=== PATIENT | male | born 1930 | race Caucasian/White ===

== ENCOUNTER 2018-02-23 05:30 | Inpatient (IN) | payer MEDICARE, BC ==
[~2018-02-23] VITALS: Ht 175.3 cm; Wt 124.7 kg
[~2018-02-23 05:30] MED LIST: ACTOS; AVAPRO; FLOMAX0.4 MG PO; K-DUR 20 MEQ T20 MEQ PO; LASIX 40 MG TAB40 M1 PO; TOPROL; ZOCOR40 MG PO
[2018-02-23 05:37] VITALS: BP 167/70
[2018-02-23] MEDS ORDERED: ULORIC80 MG PO (05:50)
[2018-02-23] MEDS ORDERED: ASPIR 8181 M1 PO (05:50)
[2018-02-23] MEDS ORDERED: VITAMIN D1000 UNI1 PO (05:50)
[2018-02-23] MEDS ORDERED: FISH OIL 1,001000 M2 PO (05:51)
[2018-02-23] MEDS ORDERED: FLONASE 0.05%50 MCG NASAL (05:51)
[2018-02-23] MEDS ORDERED: NOVOLOG100 UNIT/1 SUBQ (05:52)
[2018-02-23] MEDS ORDERED: LANTUS SUBQ (05:53)
[2018-02-23] MEDS ORDERED: TRADJENTA5 MG (05:54)
[2018-02-23] MEDS ORDERED: LISINOPRIL10 MG PO (05:54)
[2018-02-23] MEDS ORDERED: OXYBUTYNIN 5 MG5 M2 PO (05:54)
[2018-02-23] MEDS ORDERED: ZANTAC 150MG T150 MG PO (05:55)
[2018-02-23 06:18] LABS: URINE BILIRUBIN NEGATIVE (Negative); URINE BLOOD 3+ (Negative); URINE CLARITY CLEAR; URINE COLOR YELLOW; URINE GLUCOSE-RANDOM NEGATIVE (Negative); URINE KETONES NEGATIVE (Negative); URINE LEUKOCYTES-REFLEX NEGATIVE (Negative); URINE NITRITE-REFLEX NEGATIVE (Negative); URINE PROTEIN TRACE (Negative); URINE SPECIFIC GRAVITY >= 1.030 (1.005-1.030); URINE UROBILINOGEN 0.2 E.U./dl (0.2-1.0)
[2018-02-23 06:31] LABS: ABSOLUTE BASOPHILS 0.1 thou/uL (0.0-0.2); ABSOLUTE EOSINOPHILS 0.4 thou/uL (0.0-0.7); ABSOLUTE LYMPHOCYTES 1.5 thou/uL (0.8-5.3); ABSOLUTE MONOCYTES 0.6 thou/uL (0.0-1.2); ABSOLUTE NEUTROPHILS 3.7 thou/uL (1.6-8.1); BASOPHILS 1.2 %; EOSINOPHILS 5.8 %; HEMATOCRIT 39.6 % (42.0-52.0); HEMOGLOBIN 13.6 gm/dL (14.0-18.0); LYMPHOCYTES 23.5 %; MCH 30.2 pg (26.0-34.0); MCHC 34.3 g/dL (28.0-37.0); MCV 88.1 fL (80.0-100.0); MONOCYTES 9.8 %; MPV 7.1 fl. (7.2-11.1); NUCLEATED RBCS 0 /100WBC; PLATELET COUNT* 199 thou/uL (150-400); POLYS 59.7 %; RDW-CV 14.2 % (10.5-14.5); WBC 6.2 thou/uL (4.0-11.0)
[2018-02-23 06:37] LABS: CALCIUM 9.3 mg/dL (8.5-10.1); CREATININE 1.5 mg/dL (0.6-1.3); POTASSIUM 3.5 mmol/L (3.5-5.1)
[2018-02-23 06:42] LABS: ALBUMIN 3.4 g/dL (3.4-5.0); TOTAL BILIRUBIN 0.5 mg/dL (<0.1-1.0); TOTAL PROTEIN 6.8 g/dL (6.4-8.2)
[2018-02-23 06:45] LABS: BACTERIA-REFLEX 1-9 Few /HPF (None Seen); CALCIUM OXALATE 4-10 Moderate /LPF (None Seen); CASTS None Seen /LPF (None Seen); MUCUS 0-3 Light strn/LPF (None Seen); SQUAMOUS 0-3 Few /LPF (0-3); URINE WBC-REFLEX 0-5 Rare /HPF (0-5)
[2018-02-23 08:21] VITALS: BP 147/69
[2018-02-23 08:30] VITALS: BP 135/70
--- NOTE | 2018-02-23 11:23 | NUR ---
SW met with pt to complete initial assessment, introduce self, and SW role. Pt alert, oriented, pleasant. Pt lives at home with and has 3 children in the area who are supportive. Pt is independent and active and still works at selling insurance. Pt did not express any needs at this time. Pt does not have any DME or hx of HH or SNF. SW to continue to follow to assist with safe dc planning.
[2018-02-23] MEDS ORDERED: LASIX 40 MG TAB40 M2 PO (14:55)
[2018-02-23 16:00] VITALS: BP 118/41
--- NOTE | 2018-02-23 17:13 | NUR ---
PATIENT ADM TO UNIT AT 0825, TOOK REPORT FROM RICHARD JEWELL. PATIENT A&OX4, 2L O2 VIA NC. IV RIGHT AC FLUIDS INFUSSING TKO FOR HX CHF. C/O ABDOMINAL PAIN, RELIEF WITH MEDICATION. HAVING SOME DRIBLLING, URGENCY, AND FEQUENCY URINATING. STRAINING URINE, URINAL AT BEDSIDE. ADM ASSESSMENT COMPLETED AND DOCUMENTED. NO OTHER CONCERNS AT THIS TIME. APPROPRIATE AND COOPORATIVE WITH CARE.
[2018-02-24] VITALS: BP 118/45
[2018-02-24 04:49] LABS: HEMATOCRIT 36.7 % (42.0-52.0); HEMOGLOBIN 12.8 gm/dL (14.0-18.0); MCH 31.2 pg (26.0-34.0); MPV 7.5 fl. (7.2-11.1); RBC 4.12 mil/uL (4.50-6.00); RDW-CV 14.6 % (10.5-14.5); WBC 7.4 thou/uL (4.0-11.0)
[2018-02-24 05:33] LABS: ALBUMIN 2.9 g/dL (3.4-5.0); CALCIUM 8.6 mg/dL (8.5-10.1); CREATININE 2.2 mg/dL (0.6-1.3); MAGNESIUM 1.7 mg/dL (1.8-2.4); TOTAL BILIRUBIN 0.6 mg/dL (<0.1-1.0); TOTAL PROTEIN 5.6 g/dL (6.4-8.2)
--- NOTE | 2018-02-24 07:27 | NUR ---
PATIENT SLEPT PART OF THE NIGHT. PATIENT HAD NO COMPLAINTS OF PAIN. IV FLUIDS CONTINUE TO INFUSE. URINE WAS STRAINED BUT NO STONE WAS PASSED. WILL CONTINUE TO MONITOR.
[2018-02-24 08:00] VITALS: BP 154/54
[2018-02-24 15:59] VITALS: BP 137/62
--- NOTE | 2018-02-24 17:06 | NUR ---
PATIENT A&OX4, ROOM AIR, 2L O2 VIA NC PRN. IV RIGHT AC FLUIDS INFUSSING. UP STAND BY, STEADY GAIT. NO C/O PAIN/N/V. STRAINING URINE, NO STONES RETRIEVED AT THIS TIME. NO OTHER CONCERNS AT THIS TIME. APPROPRIATE AND COOPORATIVE WITH CARE.
[2018-02-25 04:27] LABS: HEMATOCRIT 37.5 % (42.0-52.0); HEMOGLOBIN 12.9 gm/dL (14.0-18.0); MCH 30.6 pg (26.0-34.0); MCHC 34.4 g/dL (28.0-37.0); MCV 89.1 fL (80.0-100.0); MPV 7.6 fl. (7.2-11.1); RBC 4.2 mil/uL (4.50-6.00); RDW-CV 14.1 % (10.5-14.5); WBC 6.6 thou/uL (4.0-11.0)
[2018-02-25 04:40] LABS: CALCIUM 8.6 mg/dL (8.5-10.1); CREATININE 1.7 mg/dL (0.6-1.3); MAGNESIUM 1.7 mg/dL (1.8-2.4); POTASSIUM 3.9 mmol/L (3.5-5.1)
--- NOTE | 2018-02-25 05:42 | NUR ---
PATIENT SLEPT MOST OF THE NIGHT. PATIENT HAD NO COMPLAINTS OF PAIN. IV FLUIDS CONTINUE TO INFUSE AT 30 ML/HR. PATIENT IS NPO INCASE OF PROCEDURE TODAY. WILL CONTINUE TO MONITOR.
[2018-02-25 07:55] VITALS: BP 159/64
[2018-02-25 16:25] VITALS: BP 159/64
[2018-02-25] MEDS ORDERED: AUGMENTIN 500-1 EACH PO (16:30)
[2018-02-25] MEDS ORDERED: NORCO 5-325 TA1 EACH PO (16:31)
--- NOTE | 2018-02-25 17:13 | NUR ---
PATEINT A&OX4, ROOM AIR, IV RIGHT AC FLUIDS INFUSSING. IV DISCONTINEUD, CATHETER FULLY INTACT. UP AD SUZI, STEADY GIAT. NO C/O PIAN/N/V. RIGHT AND LEFT KIDNEY STONES, STRAINING URINE FOR STONE, NO STONE RETRIEVED AT THIS TIME. PATIENT DISCHARGED TO HOME. REVIEWED PAPERWORK WITH PATIENT WHILE SPOUCE AT BEDSIDE. ALL QUESTIONS AND CONCERNS ANSWERED, NO OTHER CONCERNS AT THIS TIME. URINE STRAINER AND SPECIMEN CUP SENT HOME WITH PATIENT. ALL BELONGINGS TAKEN WITH PATIENT, NOTHING LEFT BEHIND. PATIENT LEFT UNIT AT 1710 VIA W/C.
== END 2018-02-25 17:10 | disposition home or self-care (01) | DRG 694 ==
LOC: M.ERS 05:30 → M.TBA-ER 07:43 → M.3W 07:43
PROVIDERS: Personal Emergency Response Attendant; ADMIT Family Medicine
DX: N13.2 Hydronephrosis with renal and ureteral calculous obstruction (principal); Z68.41 Body mass index [BMI] 40.0-44.9, adult; I13.0 Hypertensive heart and chronic kidney disease with heart failure and stage 1 through stage 4 chronic kidney disease, or unspecified chronic kidney disease; N17.0 Acute kidney failure with tubular necrosis; N40.0 Benign prostatic hyperplasia without lower urinary tract symptoms; K21.9 Gastro-esophageal reflux disease without esophagitis; M10.9 Gout, unspecified; N18.9 Chronic kidney disease, unspecified; I50.9 Heart failure, unspecified; E66.01 Morbid (severe) obesity due to excess calories; N39.41 Urge incontinence; R31.29 Other microscopic hematuria; E11.22 Type 2 diabetes mellitus with diabetic chronic kidney disease; Z90.49 Acquired absence of other specified parts of digestive tract; Z79.4 Long term (current) use of insulin; Z79.82 Long term (current) use of aspirin; Z79.899 Other long term (current) drug therapy; Z80.8 Family history of malignant neoplasm of other organs or systems; Z82.49 Family history of ischemic heart disease and other diseases of the circulatory system

== ENCOUNTER 2018-07-31 19:31 | Inpatient (IN) | payer MEDICARE, BC ==
[~2018-07-31] VITALS: Ht 175.3 cm; Wt 124.3 kg
[~2018-07-31 19:31] MED LIST changes: +ASPIR 8181 M1 PO; +AUGMENTIN 500-1 EACH PO; +FISH OIL 1,001000 M2 PO; +FLONASE 0.05%50 MCG NASAL; +LANTUS SUBQ; +LASIX 40 MG TAB40 M2 PO; +LISINOPRIL10 MG PO; +NORCO 5-325 TA1 EACH PO; +NOVOLOG100 UNIT/1 SUBQ; +OXYBUTYNIN 5 MG5 M2 PO; +TRADJENTA5 MG; +ULORIC80 MG PO; +VITAMIN D1000 UNI1 PO; +ZANTAC 150MG T150 MG PO
[2018-07-31 19:38] VITALS: BP 189/72
[2018-07-31 20:03] LABS: ABSOLUTE EOSINOPHILS 0.2 thou/uL (0.0-0.7); ABSOLUTE LYMPHOCYTES 1.4 thou/uL (0.8-5.3); ABSOLUTE MONOCYTES 0.6 thou/uL (0.0-1.2); ABSOLUTE NEUTROPHILS 5.7 thou/uL (1.6-8.1); BASOPHILS 0.6 %; EOSINOPHILS 2.2 %; HEMATOCRIT 43.3 % (42.0-52.0); HEMOGLOBIN 15.1 gm/dL (14.0-18.0); LYMPHOCYTES 17.6 %; MCH 30.5 pg (26.0-34.0); MCV 87.2 fL (80.0-100.0); MONOCYTES 7.5 %; MPV 7.2 fl. (7.2-11.1); NUCLEATED RBCS 0 /100WBC; PLATELET COUNT* 229 thou/uL (150-400); POLYS 72.1 %; RBC 4.96 mil/uL (4.50-6.00); RDW-CV 14.6 % (10.5-14.5); WBC 7.9 thou/uL (4.0-11.0)
[2018-07-31 20:06] LABS: CALCIUM 9.1 mg/dL (8.5-10.1); CREATININE 1.3 mg/dL (0.6-1.3); POTASSIUM 3.8 mmol/L (3.5-5.1)
[2018-07-31 20:11] LABS: ALBUMIN 3.9 g/dL (3.4-5.0); TOTAL BILIRUBIN 0.6 mg/dL (<0.1-1.0); TOTAL PROTEIN 7.8 g/dL (6.4-8.2)
[2018-07-31 21:50] LABS: URINE BILIRUBIN NEGATIVE (Negative); URINE BLOOD 2+ (Negative); URINE CLARITY CLEAR; URINE COLOR YELLOW; URINE GLUCOSE-RANDOM NEGATIVE (Negative); URINE KETONES NEGATIVE (Negative); URINE LEUKOCYTES-REFLEX NEGATIVE (Negative); URINE NITRITE-REFLEX NEGATIVE (Negative); URINE PROTEIN NEGATIVE (Negative); URINE SPECIFIC GRAVITY 1.025 (1.005-1.030); URINE UROBILINOGEN 0.2 E.U./dl (0.2-1.0)
[2018-07-31 21:57] LABS: BACTERIA-REFLEX 1-9 Few /HPF (None Seen); CASTS None Seen /LPF (None Seen); MUCUS 0-3 Light strn/LPF (None Seen); SQUAMOUS 0-3 Few /LPF (0-3); URINE RBC 0-2 Rare /HPF (0-2); URINE WBC-REFLEX 0-5 Rare /HPF (0-5)
[2018-07-31 21:58] LABS: CALCIUM OXALATE 4-10 Moderate /LPF (None Seen)
[2018-07-31 23:32] VITALS: BP 177/68
[2018-08-01] VITALS: BP 127/68; BP 177/70
[2018-08-01 01:30] VITALS: BP 155/69
--- NOTE | 2018-08-01 05:05 | NUR ---
PT RECIEVED FROM ED. ALERT AND ORIENTED X4. CALL LIGHT WITHIN REACH AND BED IN LOW POSITION. SAT MAINTAINED IN RA. C/O PAIN, MEDICATION GIVEN PER EMAR. HOURLY ROUNDING DONE FOR PT SAFETY.
[2018-08-01 07:50] VITALS: BP 149/70
--- NOTE | 2018-08-01 08:54 | NUR ---
ASSUMED CARE OF PT THIS AM AROUND 714- MS STATUS IN PLACE ORDERED- UPON ASSESSMENT PT NOTED TO BE RESTING IN BED- PT A&O X4- CONTINENT OF BOWEL AND BLADDER-UP AD-SUZI IN ROOM, STEADT GAIT NOTED- DIMINISHED LUNG SOUNDS NOTED, RESP EVEN AND UN-LABORED- VSS, O2 SAT 96% ON RA- ABD OBESE/ROUND/NON-TENDER, BS X 4 QUADS- PT REPORTS LAST BM X2 DAYS AGO- IV NOTED TO RIGHT AC INTACT, IVF INFUSSING PRESCIBED-KUB ORDERD THIS AM WITH PLANS TO BE DETERMINED PER UROLOGY AFTER- PT DENIES ANY C/O PAIN/DISCOMFORT AT THIS TIME- CALL LIGHT AND PERSONAL BELONGINGS WITH IN REACH- PT MAKES NEEDS KNOWN- ALL NEEDS MET AT THIST TIME-WCTM
[2018-08-01 11:48] VITALS: BP 141/68
--- NOTE | 2018-08-01 13:19 | EKG ---
[place] [address] ELECTROCARDIOGRAM REPORT Name: SELIN JOHNSTON Room: [address] ADM IN M.R.#: [id number] Admission: 07/31/18 Attend Phys: Emeka Taylor MD Discharge: Date of : 34 Report #: [id number] THIS REPORT FOR: //name// [facility] ED Test Date: 2018-07-31 Test Time: 20:00:43 Pat Name: SELIN JOHNSTON Department: Room: [facility] Gender: M Extrusion Die Repairer: [id number] : 1930 Requested By: Syeda Rivas Order Number: [id number] MD: Suleiman Tam Measurements Intervals [place] Rate: 71 P: -7 [place]: 226 QRS: -68 QRSD: 99 T: 55 QT: 441 QTc: 480 Interpretive Statements Sinus rhythm Atrial premature complex Prolonged [place] interval 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
--- NOTE | 2018-08-01 15:56 | NUR ---
Pt is A&O. Resides at home with his . Independent. No DME. No hx of HH or SNF. GI following. Goal home at wi. Following.
[2018-08-01 16:15] VITALS: BP 109/58
[2018-08-01 16:18] VITALS: BP 109/58
[2018-08-01] MEDS ORDERED: SENNA S TABLET1 EACH PO (16:32)
[2018-08-01] MEDS ORDERED: NORCO 5-325 TA1 EACH PO (16:32)
--- NOTE | 2018-08-01 17:15 | NUR ---
OKAY RECEIEVIED FOR PT TO BE D/C'D TO HOME WITH URETEROSCOPY SURGERY TO BE OP ON MONDAY WITH CONFIRMED TIME TO BE CAALLED TO PT PER NADRI WITH OFFICE PER SOWMYA BELTRAN WITH UROLOGY- UPDATED WITH ORDERS RECEIVIED TO D/C'D TO HOME WITH FOOLOW UP INDICATED WITH UROLOGY- PT AND DAUGHTER UPDATED ON PLANS AND OKAY WITH D/C- IV TO RIGHT AC D/C'D PRIOR TO D/C- D/C EDUCATION/TEACHING/NEEDED FOLLOW UP'S COMMUNICATED TO PT AND AT TIME OF D/C, VERBAL UNDERSTANDING RECEIVIED PER PT AND AT TIME OF D/C- BELONGINGS PACKED AND ACCOUNTED FOR PER PT- PT ESCORTED PER TECH, VIA W/C TO VEHICLE WITH BELONGINGS; AT SIDE AT 1720- NO PROBLEMS NOTED AT TIME OF D/C
== END 2018-08-01 17:20 | disposition home or self-care (01) | DRG 694 ==
LOC: M.ERS 19:31 → M.TBA-ER 21:58 → M.2W 21:58
PROVIDERS: Emergency Medicine; ADMIT Internal Medicine
DX: N13.2 Hydronephrosis with renal and ureteral calculous obstruction (principal); Z68.41 Body mass index [BMI] 40.0-44.9, adult; I13.0 Hypertensive heart and chronic kidney disease with heart failure and stage 1 through stage 4 chronic kidney disease, or unspecified chronic kidney disease; N40.0 Benign prostatic hyperplasia without lower urinary tract symptoms; E66.9 Obesity, unspecified; I50.9 Heart failure, unspecified; N18.3 Chronic kidney disease, stage 3 (moderate); E78.5 Hyperlipidemia, unspecified; E11.22 Type 2 diabetes mellitus with diabetic chronic kidney disease; K21.9 Gastro-esophageal reflux disease without esophagitis; G47.33 Obstructive sleep apnea (adult) (pediatric); M10.9 Gout, unspecified; Z79.84 Long term (current) use of oral hypoglycemic drugs; Z79.82 Long term (current) use of aspirin; Z90.49 Acquired absence of other specified parts of digestive tract; Z98.49 Cataract extraction status, unspecified eye; Z80.9 Family history of malignant neoplasm, unspecified; Z87.891 Personal history of nicotine dependence

== ENCOUNTER 2021-03-08 09:13 | Inpatient (IN) | payer MEDICARE, BC ==
[~2021-03-08] VITALS: Ht 175.3 cm; Wt 116.1 kg
[~2021-03-08 09:13] MED LIST changes: +SENNA S TABLET1 EACH PO
[2021-03-08 09:26] VITALS: BP 116/57
[2021-03-08 13:24] LABS: ABSOLUTE BASOPHILS 0.1 thou/uL (0.0-0.2); ABSOLUTE EOSINOPHILS 0.1 thou/uL (0.0-0.7); ABSOLUTE LYMPHOCYTES 1.5 thou/uL (0.8-5.3); ABSOLUTE MONOCYTES 0.6 thou/uL (0.0-1.2); ABSOLUTE NEUTROPHILS 11.9 thou/uL (1.6-8.1); BASOPHILS 0.6 %; EOSINOPHILS 0.5 %; HEMATOCRIT 43.1 % (42.0-52.0); HEMOGLOBIN 14.9 gm/dL (14.0-18.0); LYMPHOCYTES 10.8 %; MCH 30.9 pg (26.0-34.0); MCHC 34.5 g/dL (28.0-37.0); MCV 89.6 fL (80.0-100.0); MPV 7.4 fl. (7.2-11.1); NUCLEATED RBCS 0 /100WBC; PLATELET COUNT* 133 thou/uL (150-400); POLYS 84.1 %; RBC 4.81 mil/uL (4.50-6.00); RDW-CV 14.7 % (10.5-14.5); WBC 14.1 thou/uL (4.0-11.0)
[2021-03-08 13:35] LABS: CALCIUM 8.8 mg/dL (8.5-10.1); CREATININE 1.8 mg/dL (0.6-1.3)
[2021-03-08 13:38] LABS: POTASSIUM 2.9 mmol/L (3.5-5.1)
[2021-03-08 13:40] LABS: ALBUMIN 2.9 g/dL (3.4-5.0); TOTAL BILIRUBIN 1.4 mg/dL (<0.1-1.0)
[2021-03-08 13:46] LABS: INFLUENZA A ANTIGEN Negative (Negative); INFLUENZA B ANTIGEN Negative (Negative)
[2021-03-08 14:04] LABS: TOTAL PROTEIN 6.6 g/dL (6.4-8.2)
[2021-03-08 14:53] LABS: URINE BILIRUBIN NEGATIVE (Negative); URINE BLOOD NEGATIVE (Negative); URINE CLARITY CLEAR; URINE COLOR YELLOW; URINE GLUCOSE-RANDOM 1+ (Negative); URINE KETONES NEGATIVE (Negative); URINE LEUKOCYTES-REFLEX NEGATIVE (Negative); URINE NITRITE-REFLEX NEGATIVE (Negative); URINE PROTEIN NEGATIVE (Negative); URINE SPECIFIC GRAVITY 1.025 (1.005-1.030); URINE UROBILINOGEN 0.2 E.U./dl (0.2-1.0)
--- NOTE | 2021-03-08 15:36 | EKG ---
[place] [address] ELECTROCARDIOGRAM REPORT Name: SELIN JOHNSTON Room: [facility]#: [id number] Admission: 03/08/21 Attend Phys: Discharge: Date of : 34 Date of Service: 03/08/21 0935 Report #: [id number] THIS REPORT FOR: //name// [facility] ED Test Date: 2021-03-08 Test Time: 09:35:40 Pat Name: SELIN JOHNSTON Department: Room: Gender: Pharmacist Intern: : 1930 Requested By: Perico Cutler Order Number: [id number] MD: Suleiman Tam Measurements Intervals [place] Rate: 67 P: -20 MA: 219 QRS: -65 QRSD: 107 T: 74 QT: 443 QTc: 468 Interpretive Statements Sinus rhythm Occasional PACs Borderline prolonged MA interval Left axis deviation compatible with left anterior hemiblock Incomplete left bundle branch block Compared to ECG 07/31/2018 20:00:43 Incomplete left bundle-branch block now present Electronically Signed On 03-08-2021 15:36:05 LITERATURE PROFESSOR by Suleiman Tam [email or web address] <ELECTRONICALLY SIGNED> By: Suleiman Tam MD, [facility] 03/08/21 1536 0935 0935 Suleiman Tam MD, [facility] /EPI
[2021-03-09 02:40] VITALS: BP 113/56
[2021-03-09 04:00] VITALS: BP 126/98
[2021-03-09 08:49] VITALS: BP 115/52
[2021-03-09 12:00] VITALS: BP 127/66
[2021-03-09 13:44] LABS: ABSOLUTE BASOPHILS 0.1 thou/uL (0.0-0.2); ABSOLUTE EOSINOPHILS 0.1 thou/uL (0.0-0.7); ABSOLUTE LYMPHOCYTES 1.6 thou/uL (0.8-5.3); ABSOLUTE MONOCYTES 0.7 thou/uL (0.0-1.2); ABSOLUTE NEUTROPHILS 9.4 thou/uL (1.6-8.1); BASOPHILS 0.7 %; EOSINOPHILS 1.2 %; HEMATOCRIT 42.7 % (42.0-52.0); HEMOGLOBIN 14.7 gm/dL (14.0-18.0); LYMPHOCYTES 13.2 %; MCH 30.7 pg (26.0-34.0); MCHC 34.4 g/dL (28.0-37.0); MCV 89.2 fL (80.0-100.0); MONOCYTES 6.1 %; MPV 7.4 fl. (7.2-11.1); NUCLEATED RBCS 0 /100WBC; PLATELET COUNT* 151 thou/uL (150-400); POLYS 78.8 %; RBC 4.79 mil/uL (4.50-6.00); RDW-CV 14.6 % (10.5-14.5); WBC 11.9 thou/uL (4.0-11.0)
[2021-03-09 13:56] LABS: ALBUMIN 2.8 g/dL (3.4-5.0); CREATININE 1.4 mg/dL (0.6-1.3); MAGNESIUM 2.1 mg/dL (1.8-2.4); POTASSIUM 3.1 mmol/L (3.5-5.1); TOTAL BILIRUBIN 0.9 mg/dL (<0.1-1.0); TOTAL PROTEIN 6.5 g/dL (6.4-8.2)
[2021-03-09 14:41] VITALS: BP 127/66
== END 2021-03-09 15:10 | disposition home or self-care (01) | DRG 640 ==
LOC: M.ERS 09:13 → M.2W 20:05 → M.TBA-ER 20:05 → M.2W 03-09 03:06
PROVIDERS: Emergency Medicine Emergency Medical Services; Internal Medicine; Nurse Practitioner Family; ADMIT Internal Medicine; ATTEND Internal Medicine
DX: E86.0 Dehydration (principal); N17.0 Acute kidney failure with tubular necrosis; E87.1 Hypo-osmolality and hyponatremia; E87.6 Hypokalemia; E11.9 Type 2 diabetes mellitus without complications; I50.9 Heart failure, unspecified; E66.01 Morbid (severe) obesity due to excess calories; Z20.822 Contact with and (suspected) exposure to COVID-19; I11.0 Hypertensive heart disease with heart failure; Z82.49 Family history of ischemic heart disease and other diseases of the circulatory system; Z87.891 Personal history of nicotine dependence; Z68.37 Body mass index [BMI] 37.0-37.9, adult; Z90.49 Acquired absence of other specified parts of digestive tract; Z98.49 Cataract extraction status, unspecified eye